=== PATIENT | female | born 1985 | race Caucasian/White ===

== ENCOUNTER 2018-01-12 08:22 | Emergency (ER) | payer MEDICAID ==
[~2018-01-12] VITALS: Ht 170.2 cm; Wt 88.9 kg
[~2018-01-12 08:22] MED LIST: ACYC800 PO; CITA20; CLIN300 PO; CRUTCH4 USE; HYDACE5 PO; IBUP600 PO; PENVK500 PO; PRED10 PO; TRAM50 PO; TRAZ50; TRIA80TC TOP
[2018-01-12] MEDS ORDERED: Crutch1 EACH MISC (10:30)
== END 2018-01-12 10:37 | disposition home or self-care (01) ==
LOC: ER 08:22
DX: S83.422A Sprain of lateral collateral ligament of left knee, initial encounter (principal); F17.200 Nicotine dependence, unspecified, uncomplicated; X58.XXXA Exposure to other specified factors, initial encounter
CPT/HCPCS: 29505; 73564; 99283-25

== ENCOUNTER 2020-12-26 08:40 | Emergency (ER) | payer OTHER ==
[~2020-12-26] VITALS: Ht 170.2 cm; Wt 84.4 kg
[~2020-12-26 08:40] MED LIST changes: +Crutch1 EACH MISC
== END 2020-12-26 10:46 | disposition home or self-care (01) ==
LOC: ER 08:40
DX: J06.9 Acute upper respiratory infection, unspecified (principal); F17.200 Nicotine dependence, unspecified, uncomplicated; Z20.822 Contact with and (suspected) exposure to COVID-19
CPT/HCPCS: 99283

== ENCOUNTER → 2024-03-18 | Outpatient (CLI) | payer SELFPAY ==
[2024-03-18 15:39] LABS: Bacterial Vaginosis PCR Negative (NEGATIVE); Candida glabrata-krusei, PCR NOT DETECTED (NOT DETECT)
[2024-03-18 15:53] LABS: Candida Group, PCR DETECTED (NOT DETECT)
== END | disposition home or self-care (01) ==
LOC: LAB 13:13 → LAB SHORT 13:13
PROVIDERS: Registered Nurse Community Health
DX: N89.8 Other specified noninflammatory disorders of vagina (principal)
CPT/HCPCS: 87481; 87661; 87801